=== PATIENT | female | born 2000 | race African-American/Black ===

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

== ENCOUNTER 2022-01-22 00:15 | Emergency (ER) | payer OTHER ==
[~2022-01-22] VITALS: Ht 170.2 cm; Wt 70.5 kg
[~2022-01-22 00:15] MED LIST changes: +MIRE1IUD
[2022-01-22 00:17] VITALS: BP 134/77
[2022-01-22] MEDS ORDERED: SERT25TA21 PO (00:30)
== END 2022-01-22 04:38 | disposition left against medical advice (07) ==
LOC: M ED 00:15
DX: Z53.29 Procedure and treatment not carried out because of patient's decision for other reasons (principal)

== ENCOUNTER 2022-04-23 13:33 | Inpatient (IN) | payer OTHER ==
[~2022-04-23] VITALS: Ht 170.2 cm; Wt 66.8 kg
[~2022-04-23 13:33] MED LIST changes: +SERT25TA21 PO
[2022-04-23 14:54] LABS: HEMATOCRIT 40.8 % (36.0-47.0); MEAN CORPUSCULAR HGB CONC 31.9 g/dl (32.0-36.5); MEAN CORPUSCULAR VOLUME 94.2 fl (80.0-96.0); PLATELET COUNT, AUTOMATED 249 10^3/uL (150-450); RED BLOOD COUNT 4.33 10^6/uL (4.00-5.40); WHITE BLOOD COUNT 7.9 10^3/uL (4.0-10.0)
[2022-04-23 15:35] LABS: AMPHETAMINES LEVEL URINE NEGATIVE (NEGATIVE); BARBITURATES URINE NEGATIVE (NEGATIVE); BENZODIAZEPINES URINE NEGATIVE (NEGATIVE); CANNABINOIDS URINE NEGATIVE (NEGATIVE); COCAINE METABOLITE URINE NEGATIVE (NEGATIVE); METHADONE URINE NEGATIVE (NEGATIVE); OPIATES URINE NEGATIVE (NEGATIVE); PHENCYCLIDINE URINE NEGATIVE (NEGATIVE)
[2022-04-23 15:45] LABS: HCG, SERUM QUALITATIVE NEGATIVE (NEGATIVE)
[2022-04-23 15:49] LABS: RSV AMPLIFICATION NEGATIVE (NEGATIVE)
[2022-04-23 15:59] LABS: ACETAMINOPHEN LEVEL < 2.0 UG/ML (10.0-30.0); ALT/SGPT 15 U/L (12-78); BILIRUBIN,DIRECT 0.1 MG/DL (0.0-0.2); BILIRUBIN,TOTAL 0.3 MG/DL (0.2-1.0); BLOOD UREA NITROGEN 13 MG/DL (7-18); CALCIUM LEVEL 9.5 MG/DL (8.5-10.1); CARBON DIOXIDE LEVEL 23 MEQ/L (21-32); CHLORIDE LEVEL 106 MEQ/L (98-107); CREATININE FOR GFR 0.87 MG/DL (0.55-1.30); ETHYL ALCOHOL (ETHANOL) 0.006 % (0.000-0.010); GLUCOSE, FASTING 76 MG/DL (70-100); POTASSIUM SERUM 3.6 MEQ/L (3.5-5.1); SALICYLATE LEVEL < 1.7 MG/DL (5.0-30.0); SODIUM LEVEL 137 MEQ/L (136-145); TOTAL PROTEIN 8.6 GM/DL (6.4-8.2)
[2022-04-24] MEDS ORDERED: ZOLO100T PO (07:51)
[2022-04-24] MEDS ORDERED: HOME MED LIST COMPLETE! XX SCH (08:25)
[2022-04-24] MEDS ORDERED: SERTRALINE 100 MG TAB PO SCH (09:00)
[2022-04-24] MEDS ORDERED: ACETAMINOPHEN TAB 650MG DOSE (2X325MG) PO PRN (20:10)
[2022-04-24] MEDS ORDERED: traZODone 50 MG TAB PO PRN (20:10)
[2022-04-24] MEDS ORDERED: MAALOX 30 ML SUSP *UDC PO PRN (20:10)
[2022-04-24] MEDS ORDERED: MOM 30ML SUSPENSION UDC PO PRN (20:10)
[2022-04-24 21:21] VITALS: BP 135/87
[2022-04-24 21:59] VITALS: BP_SYST 122; BP_SYST 130; BP_SYST 140; BP_DIAS 73; BP_DIAS 75; BP_DIAS 79
[2022-04-24] MEDS: FLUTICASONE PROP 0.05% NASAL SPRAY 16 GM (FLONASE) NARES SCH (23:14)
[2022-04-25 00:10] VITALS: BP 112/74
[2022-04-25 02:00] VITALS: BP 129/71
[2022-04-25 04:00] VITALS: BP 128/60
[2022-04-25 06:20] VITALS: BP_SYST 117; BP_SYST 118; BP_DIAS 57; BP_DIAS 69; BP_DIAS 74
[2022-04-25 06:48] LABS: BASO % 0.3 % (0.0-1.0); EOS # 0.5 10^3/uL (0.0-0.5); EOS % 7.9 % (0.0-3.0); HEMOGLOBIN 13.4 g/dl (12.0-15.5); LYMPH # 3.1 10^3/uL (1.5-5.0); LYMPH % 47.4 % (24.0-44.0); MEAN CORPUSCULAR HEMOGLOBIN 30.4 pg (27.0-33.0); MEAN CORPUSCULAR HGB CONC 32.7 g/dl (32.0-36.5); MONO # 0.4 10^3/uL (0.0-0.8); MONO % 5.6 % (2.0-8.0); NEUTROPHILS # 2.5 10^3/uL (1.5-8.5); NEUTROPHILS % 38.6 % (36.0-66.0); PLATELET COUNT, AUTOMATED 255 10^3/uL (150-450); RED BLOOD COUNT 4.41 10^6/uL (4.00-5.40); WHITE BLOOD COUNT 6.5 10^3/uL (4.0-10.0)
[2022-04-25 06:51] VITALS: BP 117/57
[2022-04-25 07:27] LABS: BLOOD UREA NITROGEN 8 MG/DL (7-18); CALCIUM LEVEL 9.6 MG/DL (8.5-10.1); CARBON DIOXIDE LEVEL 26 MEQ/L (21-32); CHLORIDE LEVEL 106 MEQ/L (98-107); CREATININE FOR GFR 0.88 MG/DL (0.55-1.30); GLUCOSE, FASTING 84 MG/DL (70-100); POTASSIUM SERUM 3.8 MEQ/L (3.5-5.1); SODIUM LEVEL 138 MEQ/L (136-145)
[2022-04-25] MEDS: FLUTICASONE PROP 0.05% NASAL SPRAY 16 GM (FLONASE) NARES SCH ×2 (09:00→21:24)
[2022-04-25] MEDS ORDERED: SERTRALINE HCL 25 MG TABLET PO SCH (09:00)
[2022-04-25 18:09] VITALS: BP 119/86
[2022-04-26] MEDS: SERTRALINE HCL 50 MG TAB PO SCH (10:37)
[2022-04-26] MEDS: FLUTICASONE PROP 0.05% NASAL SPRAY 16 GM (FLONASE) NARES SCH ×2 (10:37→21:34)
[2022-04-26 18:14] VITALS: BP 124/81
[2022-04-27 06:53] VITALS: BP 99/54
[2022-04-27] MEDS: FLUTICASONE PROP 0.05% NASAL SPRAY 16 GM (FLONASE) NARES SCH ×2 (09:00→21:07)
[2022-04-27] MEDS: SERTRALINE HCL 50 MG TAB PO SCH (09:56)
[2022-04-27 18:35] VITALS: BP 114/56
[2022-04-27] MEDS: traZODone 100 MG TAB PO PRN (21:07)
[2022-04-28 06:37] VITALS: BP 91/53
[2022-04-28] MEDS: FLUTICASONE PROP 0.05% NASAL SPRAY 16 GM (FLONASE) NARES SCH ×2 (08:59→21:41)
[2022-04-28] MEDS: SERTRALINE HCL 50 MG TAB PO SCH (08:59)
[2022-04-29 06:42] VITALS: BP 121/69
[2022-04-29] MEDS: FLUTICASONE PROP 0.05% NASAL SPRAY 16 GM (FLONASE) NARES SCH ×2 (09:22→19:38)
[2022-04-29] MEDS: SERTRALINE HCL 50 MG TAB PO SCH (09:22)
[2022-04-29 16:29] VITALS: BP 114/56
[2022-04-29] MEDS: traZODone 100 MG TAB PO PRN (19:39)
[2022-04-30 06:48] VITALS: BP 111/57
[2022-04-30] MEDS: SERTRALINE HCL 50 MG TAB PO SCH (08:41)
[2022-04-30] MEDS: FLUTICASONE PROP 0.05% NASAL SPRAY 16 GM (FLONASE) NARES SCH (08:41)
[2022-04-30] MEDS ORDERED: SERT50TA29 PO (11:24)
[2022-04-30] MEDS ORDERED: FLUTISP NARES (11:24)
[2022-04-30] MEDS ORDERED: TRAZ-257 PO (11:24)
== END 2022-04-30 13:11 | disposition home or self-care (01) | DRG 881 ==
LOC: M ED 13:33 → EDBD 13:33 → M ED INP 04-24 20:07 → M PSY 04-24 21:00
PROVIDERS: ADMIT Psychiatry & Neurology Psychiatry; ATTEND Psychiatry & Neurology Psychiatry
DX: F43.21 Adjustment disorder with depressed mood (principal); R45.851 Suicidal ideations; R55 Syncope and collapse; Z91.51 Personal history of suicidal behavior; Z20.822 Contact with and (suspected) exposure to COVID-19; Z73.3 Stress, not elsewhere classified